=== PATIENT | male | born 1985 | race Caucasian/White ===

== ENCOUNTER 2023-03-13 04:00 | Day surgery (SDC) | payer OTHER ==
[2023-03-13] VITALS (232 sets, daily range): BP systolic 75–153; BP diastolic 53–102
[~2023-03-13] VITALS: Ht 188 cm; Wt 74.2 kg
[2023-03-13 08:19] LABS: BASO% 0.7 % (0-3); EOS% 15.8 % (0-8); HEMATOCRIT 37.2 % (39.0-50.0); HEMOGLOBIN 12.2 g/dl (14.0-18.0); IMMATURE GRANULOCYTES 0.6 % (0.0-5.0); LYMPH% 29.3 % (15-41); MEAN CELL VOLUME 87.1 fL CALC (80.0-100.0); MEAN CORPUSCULAR HGB 28.6 pG CALC (26.0-32.0); MEAN CORPUSCULAR HGB CONC 32.8 g/dL CAL (32.0-36.0); MONO% 7.2 % (2-13); NEUT# 3.31 thou/uL (1.82-7.42); NEUT% 46.4 % (42-76); RED BLOOD COUNT 4.27 mill/uL (4.70-6.10); RED CELL DISTRI WIDTH 11.9 % (11.5-15.5)
[2023-03-13 08:31] LABS: ALBUMIN 4.4 g/dL (3.2-5.0); ALKALINE PHOSPHATASE 53 u/l (38-126); ANION GAP 9 (6-22 (CALC)); BILIRUBIN, TOTAL 0.2 mg/dL (0.2-1.3); BUN 20 mg/dL (9-20); BUN/CREATININE RATIO 25 (12-20 (CALC)); CARBON DIOXIDE 31 mmol/l (22-30); CHLORIDE 105 mmol/l (95-108); CREATININE 0.8 mg/dL (0.7-1.3); GFR FOR AFR.AMER. > 60 ML/MIN (>=60 (CALC)); GFR OTHER RACES > 60 ML/MIN (>=60 (CALC)); SGOT/AST 52 u/l (17-59); SODIUM 141 mmol/l (137-146); TOTAL PROTEIN 7.1 g/dL (6.3-8.2)
[2023-03-13] MEDS ORDERED: CLONIDINE0.1 MG PO (14:17)
[2023-03-13] MEDS ORDERED: KLONOPIN2 MG PO (14:17)
[2023-03-13] MEDS ORDERED: NALTREXONE50 MG PO (14:17)
[2023-03-14 04:13] VITALS: BP 111/75
[2023-03-14 06:17] LABS: BASO% 0.1 % (0-3); HEMATOCRIT 35.2 % (39.0-50.0); HEMOGLOBIN 12.2 g/dl (14.0-18.0); IMMATURE GRANULOCYTES 0.2 % (0.0-5.0); LYMPH% 9.2 % (15-41); MEAN CELL VOLUME 83.6 fL CALC (80.0-100.0); MEAN CORPUSCULAR HGB CONC 34.7 g/dL CAL (32.0-36.0); MONO% 3.4 % (2-13); NEUT# 10.88 thou/uL (1.82-7.42); NEUT% 87.1 % (42-76); RED BLOOD COUNT 4.21 mill/uL (4.70-6.10); RED CELL DISTRI WIDTH 11.7 % (11.5-15.5)
[2023-03-14 06:28] LABS: ALBUMIN 3.7 g/dL (3.2-5.0); ALKALINE PHOSPHATASE 54 u/l (38-126); BUN 16 mg/dL (9-20); BUN/CREATININE RATIO 26 (12-20 (CALC)); CHLORIDE 104 mmol/l (95-108); CREATININE 0.6 mg/dL (0.7-1.3); GFR FOR AFR.AMER. > 60 ML/MIN (>=60 (CALC)); GFR OTHER RACES > 60 ML/MIN (>=60 (CALC)); MAGNESIUM 1.9 mg/dL (1.6-2.3); POTASSIUM 3.7 mmol/l (3.5-5.1); SGOT/AST 46 u/l (17-59); SODIUM 134 mmol/l (137-146); TOTAL PROTEIN 6.3 g/dL (6.3-8.2)
[2023-03-14 06:39] LABS: ANION GAP 10 (6-22 (CALC)); BILIRUBIN, TOTAL 0.5 mg/dL (0.2-1.3); CARBON DIOXIDE 24 mmol/l (22-30)
[2023-03-14 06:46] VITALS: BP 114/75
[2023-03-14 12:33] VITALS: BP 114/75
== END 2023-03-14 17:40 | disposition home or self-care (01) | DRG 897 ==
LOC: MS2 04:00 → ANR 04:00
PROVIDERS: ATTEND Anesthesiology
DX: F11.20 Opioid dependence, uncomplicated (principal)
CPT/HCPCS: J0131; J2354; J3475